=== PATIENT | male | born 1965 | race Caucasian/White ===

== ENCOUNTER 2019-04-25 21:08 | Observation (INO) ==
[2019-04-25 22:05] LABS: BASO# 0.04 X1000 (0.0-0.2); BASO% 0.4 % (0.0-0.8); EOS# 0.29 X1000 (0.0-0.7); EOS% 2.6 % (0.0-10.0); HEMATOCRIT 49.2 % (42.0-52.0); IMM GRAN# 0.04 X1000 (0.0-0.04); IMM GRAN% 0.4 % (0.0-0.5); LYMPH# 2.61 X1000 (1.2-3.4); LYMPH% 23.4 % (20.5-51.1); MCH 28.2 PG (27-31); MCHC 32.5 g/dL (33-37); MCV 86.6 FL (81-99); MONO# 1.34 X1000 (0.11-0.59); MPV 10.9 FL (7.4-10.4); NEUT# 6.84 X1000 (1.4-6.5); NEUT% 61.2 % (42.2-75.2); PLT 243 X1000 (130-400); RBC 5.68 XMIL (4.7-6.1); RDW 12.2 % (11.5-14.5); WBC 11.16 X1000 (4.8-10.8)
[2019-04-25 22:11] LABS: AGAP 12; ALBUMIN 4.5 g/dL (3.5-5.0); ALKALINE PHOSPHATASE 105 U/L (32-122); BUN 15 mg/dL (8-22); CALCIUM 9.4 mg/dL (8.8-10.2); CHLORIDE 102 mmol/L (98-107); COSMO 280; CREATININE 0.9 mg/dL (0.7-1.2); ESTIMATED GFR > 60; GLUCOSE 123 mg/dL (70-104); GOT 17 U/L (10-34); GPT 21 U/L (10-44); POTASSIUM 4.7 mmol/L (3.5-5.1); SODIUM 139 mmol/L (136-145); TCO2 26 mmol/L (25-35); TOTAL PROTEIN 7.4 g/dL (6.3-8.3)
[2019-04-25 22:21] LABS: INR 0.87; PROTIME 12.3 Seconds (11.0-16.0)
[2019-04-25 22:22] LABS: PTT 33.3 Seconds (22.3-41.8)
--- NOTE | 2019-04-25 23:20 | PROVIDER DOCUMENTATION ---
This chart was entered by Rafaela Baldwin Scribe, acting as scribe for Glenys Ramirez CRNP. HPI-Syncope/Dizziness - General Chief Complaint: Numbness Stated Complaint: WORK RELATED , DIZZY Time Seen by Provider: 04/25/19 21:24 Source: RN/MD Allergies/Adverse Reactions: Patient Allergies Allergy/AdvReac Type Severity Reaction Status Date / Time No Known Allergies Allergy Verified 04/25/19 21:23 - History of Present Illness-Syncope/Dizzy Nature of Presenting Problem: pt is a 53 yowm c/o sudden onset tinnitus, dizziness and tingling in rt arm and rt leg while at work. pt reports his leg feels heavier than normal. pt has no pcp and has not seen a DR IN YEARS Prior Episodes: reports: no prior history Onset/Duration: reports: just prior to arrival Timing: reports: still present Position/Activity at time of episode: reports: standing, activity Symptoms prior to episode: reports: lightheaded Context: reports: felt faint Loss of Consciousness: no loss of consciousness Location of injury. (If syncope resulted in an injury.): reports: none Current Symptoms: reports: dizzy. denies: headache, blurred vision Recently Seen Here or By Another Healthcare Provider: No - Dizziness Severity in ED: reports: mild Dizziness Related Current/Associated Symptoms: reports: dizzy, ringing/roaring in ears, other (tingling in RLE, RUE, leg feels heavier than normal) Any recent trauma/injury?: reports: none Modifying Factors: improves with: nothing Patient usually:: reports: walks without assistance Review of Systems - Adult - REVIEW OF SYSTEMS - ADULT Constitutional: reports: no symptoms reported. denies: fever, fatique, night sweats Eyes: reports: no symptoms reported Ears, Nose, Mouth & Throat: reports: see HPI, tinnitus. denies: sinus problem, hoarseness, throat pain Cardiovascular: reports: no symptoms reported Respiratory: reports: no symptoms reported Gastrointestinal: reports: no symptoms reported Genitourinary: reports: no symptoms reported Musculoskeletal: reports: no symptoms reported Integumentary: reports: no symptoms reported Neurological: reports: see HPI, dizziness/vertigo, paresthesia (tingling in rt arm and rt leg, leg feels heavier than normal). denies: loss of balance, syncope, tremors Psychiatric: reports: no symptoms reported Endocrine: reports: no symptoms reported Hematologic/Lymphatic: reports: no symptoms reported Allergic/Immunologic: reports: no symptoms reported All Other Systems: Reviewed and Negative Past History - Adult - PAST MEDICAL HISTORY-ADULT Review of Records: reports: Nursing Assessment Review, Medications Reviewed, Social history reviewed & non-contributory. Major Childhood Illnesses: reports: denies history Cardiovascular: reports: denies history Respiratory: reports: denies history Gastrointestinal: reports: denies history Obstetrical/Gynecological: reports: denies history Genitourinary: reports: denies history Musculoskeletal: reports: denies history Neurological: reports: denies history Endocrine/Immune: reports: denies history Other Conditions: reports: denies history - IMMUNIZATION STATUS Childhood Immunizations: See Nurse Assessment Flu Vaccine: See Nurse Assessment - FAMILY HISTORY Family History: reviewed, not pertinent Physical Exam-General - PHYSICAL EXAM-ADULT Initial Vital Signs Reviewed: Yes - CONSTITUTIONAL General Appearance: appears well, alert, no apparent distress - EYES Eyes: PERRL/EOMI, pink conjunctivae - HEAD, EARS, NOSE, MOUTH & THROAT HENMT: normocephalic/atraumatic, moist mucous membranes, normal ENT inspection - NECK Neck: non-tender, full range of motion, supple, normal inspection - RESPIRATORY Respiratory: chest non-tender, lungs clear, normal breath sounds - CARDIOVASCULAR Cardiovascular: normal peripheral pulses, regular rate, rhythm - GASTROINTESTINAL (ABDOMEN) Abdominal Exam: normal bowel sounds, non tender, soft - MUSCULOSKELETAL Back Exam: normal inspection Extremity: normal range of motion, non-tender, normal inspection - SKIN Integumentary: normal color, normal turgor, warm/dry - NEUROLOGIC Neurologic: planer feeder II-XII nml as tested, grossly normal, no motor/sensory deficits, other (pt has equal strength in bilat UE and LE). negative: focal weakness, motor weakness, sensory deficit - PSYCHIATRIC Psych/Mental Status: normal mood/affect, normal thought content, normal thought process, oriented x 3 Progress - PLAN OF CARE/RESULTS Progress/Plan/Lab Results: Vital Signs - 8 hr 04/25/19 21:19 04/25/19 22:57 Temperature 98.1 F Pulse Rate 88 76 Respiratory Rate 16 10 L Blood Pressure 156/92 149/95 O2 Sat by Pulse Oximetry 94 L 96 Laboratory Results - last 24 hr 01/06/1304/25/19 04/25/19 21:40 21:40 21:40 WBC 11.16 H RBC 5.68 Hgb 16.0 Hct 49.2 MCV 86.6 MCH 28.2 MCHC 32.5 L RDW Std Deviation 12.2 Plt Count 243 MPV 10.9 H Immature Gran % (Auto) 0.4 Neut % (Auto) 61.2 Lymph % (Auto) 23.4 Ness % (Auto) 12.0 H Eos % (Auto) 2.6 Baso % (Auto) 0.4 Immature Gran # (Auto) 0.04 Neut # (Auto) 6.84 H Lymph # (Auto) 2.61 Ness # (Auto) 1.34 H Eos # (Auto) 0.29 Baso # (Auto) 0.04 PT INR PTT (Actin FS) Sodium 139 Potassium 4.7 Chloride 102 Carbon Dioxide 26 Anion Gap 12 BUN 15 Creatinine 0.9 Estimated GFR/1.73 m2 > 60 BUN/Creatinine Ratio 17 Glucose 123 H Calculated Osmolality 280 Calcium 9.4 Total Bilirubin 0.50 AST 17 ALT 21 Alkaline Phosphatase 105 Troponin T < 0.010 Total Protein 7.4 Albumin 4.5 Globulin 3.0 Albumin/Globulin Ratio 2.0 04/25/19 21:40 WBC RBC Hgb Hct MCV MCH MCHC RDW Std Deviation Plt Count MPV Immature Gran % (Auto) Neut % (Auto) Lymph % (Auto) Ness % (Auto) Eos % (Auto) Baso % (Auto) Immature Gran # (Auto) Neut # (Auto) Lymph # (Auto) Ness # (Auto) Eos # (Auto) Baso # (Auto) PT 12.3 INR 0.87 PTT (Actin FS) 33.3 Sodium Potassium Chloride Carbon Dioxide Anion Gap BUN Creatinine Estimated GFR/1.73 m2 BUN/Creatinine Ratio Glucose Calculated Osmolality Calcium Total Bilirubin AST ALT Alkaline Phosphatase Troponin T Total Protein Albumin Globulin Albumin/Globulin Ratio Orders Category Date Time Status Cardiac Monitoring DIRECTED Care 04/25/19 21:25 Active Finger Stick Blood Sugar (ED) DIRECTED Care 04/25/19 21:25 Active Oxygen Therapy- ED Nursing DIRECTED Care 04/25/19 21:25 Active Saline Loc NOW Care 04/25/19 21:[address] HEAD W/O CONTRAST [CT] Stat Exams 04/25/19 21:24 Taken cxr [CHEST-2 VIEWS] [RAD] Stat Exams 04/25/19 22:59 Taken CBC WITH ELECTRONIC DIFF [HEME] Stat Lab 04/25/19 21:40 Completed COMPREHENSIVE METABOLIC PANEL [CHEM] Stat Lab 04/25/19 21:40 Completed PROTIME WITH INR [COAG] Stat Lab 04/25/19 21:40 Completed PTT [COAG] Stat Lab 04/25/19 21:40 Completed TROPONIN T Stat Lab 04/25/19 21:40 Completed URINALYSIS W/POSS RFLX CULT [URINALYSIS] Stat Lab 04/25/19 21:25 Uncollected URINE DRUG SCREEN PL Stat Lab 04/25/19 21:25 Uncollected EKG [EKG] Stat Ther 04/25/19 21:25 Ordered 2255: D/W DR DÍAZ ABOUT POSSIBLE TX TO [place], HE RECOMMENDS ADMISSION HERE AT [facility] FOR WORKUP 2300: OFFERED ADMISSION, PT AND FAMILY DISCUSSING 2325 PT IN AGREEMENT WITH ADMISSION Result Diagrams: 04/25/19 21:40 04/25/19 21:40 - EKG 1 Time of EKG reading by physician:: 21:36 EKG Read and Signed by:: Andrei Díaz EKG Interpretation (*Must complete 3 of following elements*): Normal Rate: 82 Rhythm: NSR [place]: normal QRS: normal MA Interval: normal ST Wave: normal Prior EKG Comparison: no prior EKG - XRAY 1 XRAY Study: Chest Impression: Normal - CT/MRI 1 CT Study: Head Impression: See EMR Report (1 NEGATIVE FOR ACUTE INTRACRANIAL ABNORMALITY 2. SINUSITIS) - CONSULTS/PCP/HOSPITALIST Notification #1 *Consult/PCP/Hospitalist*: DR. ALVARADO Time Discussed: 23:23 Consult Disposition: Admit (CVA WORK UP) Departure - Departure Date of Disposition Decision: 04/25/19 Time of Disposition Decision: 23:24 DIAGNOSIS: CVA (cerebral vascular accident) Disposition: HOME 01 Certified Medical Emergency: Emergent Condition: Stable Referrals and Follow-Ups: None,PCP [Primary Care Provider] - - Critical Care Note This patient required my direct & personal management of CC.: No Attestation - Physician/ KYRA Attestation Patient care was provided by Advanced Practice Provider:: Yes Advanced Practice Provider:: Glenys Ramirez Advanced Practice Provider documentation review:: The Mid-level provider documentation, treatment plan and medical decision making was reviewed by the physician who agrees with all treatment and medical decision making by the MLP. The physician spent face to face time with patient:: No Advanced Practice Provider documentation review:: Supervising physician onsite and consulted in the evaluation and care of this patient. The physician did not have a face to face encounter with the patient. - NIH Stroke Scale NIH Type: Initial Evaluation Level of Consciousness: 0-Alert LOC Questions (ask month and age): 0-Answers Both Correctly LOC Commands (ask to open & close eyes;make a fist, let go): 0-Obeys Both Correctly Best Gaze (horizontal eye movement): 0-Normal Visual (use finger movement, counting or visual threat): 0-No Visual Loss Facial Palsy (show teeth or raise eyebrows & close eyes tght: 0-Symmetrical Movement Motor Function-left arm: 0-Normal Motor Function-right arm: 0-Normal Motor Function-left le-Normal Motor Function-right le-Drift Limb Ataxia(iffbsn-mrgp-uomneq, or heel to mullins): 0-No Ataxia Sensory(pin prick to face,arms,trunk,legs-compare side/side): 0-No Ataxia Best Language(name item/read sentence.Ex-Down to Earth): 0-No Aphasia Dysarthria(Pt read words or say words Ex.Mama,Tip-Top,Thanks: 0-Normal Articulation Extinction and Inattention: 0-Normal NIH Total Score: 1 Stroke tPA Guidelines - Inclusion Criteria for IV tPA 18 years old or older: Yes Ischemic stroke with measurable deficit: Yes Onset <3 hours ago *OR* 3-4.5 hours ago: Yes - Exclusion Criteria for IV tPA Evidence of intracranial hemorrhage on CT: No Presentation suggest SAH: No CT reveals defined area of hypodensity: No Evidence of AVM, neoplasm, aneurysm: No Seizure at stroke onset: No Active internal bleeding or acute trauma: No Platelet Count Less Than 100,000: No Heparin Within Last 48 HRS (PTT >Lab normal limits): No INR > 1.7 (warfarin use): No Use IIB/IIIA inhibitors within 24 hours: No Serious Head Trauma Within Last 3 Months: No Arterial Puncture Within Last 7 Days: No Lumbar Puncture Within Last 7 Days: No Repeated systolic Blood Pressure >185 or Diastolic >110: No - Additional Exclusion Criteria for IV tPA Currently on Coumadin: No Patient older than 80: No Prior stroke and diabetes: No Baseline NIHSS score > 25: No - Relative Contraindications to IV tPA CT reveals extensive area of infarct (>1/3 MCA territory): No Minor or rapidly improving stroke symptoms: Yes Major Surgery or Serious Trauma In Previous 14 Days: No AMI within 3 months: No Gastrointestinal or Urinary Tract hemorrhage in Past 21 Days: No Post - AMI pericarditis: No Blood Glucose Less Than 50 mg/dl or Greater Than 400 mg/dl: No This chart was documented by the indicated scribe, (Rafaela Baldwin Scribe) and accurately reflects the services I performed and decisions made by , Glenys Ramirez CRNP, as attested by the provider's signature.
[2019-04-25 23:42] LABS: URINE SOURCE CLEAN CATCH
[2019-04-25 23:53] LABS: BILIRUBIN URINE NEGATIVE (NEGATIVE); BLOOD URINE NEGATIVE (NEGATIVE); COLOR STRAW; GLUCOSE URINE NEGATIVE (NEGATIVE); KETONE URINE NEGATIVE (NEGATIVE); LEUKOCYTES URINE NEGATIVE (NEGATIVE); NITRITE URINE NEGATIVE (NEGATIVE); PROTEIN URINE NEGATIVE (NEGATIVE); SP GRAVITY URINE 1.009; TURBIDITY URINE CLEAR (CLEAR); UR EPITHELIAL CELLS <10 /HPF (<10); URINE BACTERIA NEGATIVE /HPF; URINE RBC <10 /HPF (<10); URINE WBC <10 /HPF (<10); UROBILINOGEN URINE NORMAL (NORMAL)
--- NOTE | 2019-04-26 00:10 | EKG Report ---
Test Performed on : 04/25/2019 9:36:17 PM Test Reason : CVA W/U Blood Pressure : / mmHG Vent. Rate : 082 BPM Atrial Rate : 082 BPM P-R Int : 146 ms QRS Dur : 088 ms QT Int : 374 ms P-R-T Axes : 043 027 052 degrees QTc Int : 436 ms Normal sinus rhythm. Normal ECG No previous ECGs available Unconfirmed Result
[2019-04-26 00:14] LABS: UR AMPHETAMINES QUAL NONE DETECTED (NONE DETECT); UR BARBITUATES QUAL NONE DETECTED (NONE DETECT); UR BENZODIAZEPIN QUAL NONE DETECTED (NONE DETECT); UR CANNABINOIDS QUAL NONE DETECTED (NONE DETECT); UR COCAINE QUAL NONE DETECTED (NONE DETECT); UR METHADONE QUAL NONE DETECTED (NONE DETECT); UR METHAMPHETAMINE QUAL NONE DETECTED (NONE DETECT); UR OPIATES QUAL NONE DETECTED (NONE DETECT); UR OXYCODONE QUAL NONE DETECTED (NONE DETECT); UR PCP QUAL NONE DETECTED (NONE DETECT); UR PROPOXYPHENE QUAL NONE DETECTED (NONE DETECT); UR TCA QUAL NONE DETECTED (NONE DETECT)
[2019-04-26 01:16] LABS: CHOLESTEROL 217 mg/dL (0-200); HDL 44 mg/dL (35-55); HEMOGLOBIN A1C 5.5 % (4.8-6.0); LDL 132 mg/dL; TRIGLYCERIDES 206 mg/dL (39-160); VLDL 41 mg/dL
--- NOTE | 2019-04-26 08:34 | Diag Imaging Result Doc PS360 ---
EXAM: CHEST-2 VIEWS HISTORY: LOW SATS TECHNIQUE: PA and Lateral chest x-ray COMPARISON: None. FINDINGS: The cardiomediastinal silhouette is within normal limits. The pulmonary vasculature is not congested. No infiltrate, effusion, or pneumothorax is appreciated. IMPRESSION: No acute cardiopulmonary abnormality is identified. Electronically signed by Nella Troncoso 04/26/2019 8:32 AM
--- NOTE | 2019-04-26 08:57 | Diag Imaging Result Doc PS360 ---
EXAM: CT HEAD W/O CONTRAST HISTORY: R SIDE NUMBNESS TECHNIQUE: Images were obtained from the skull base to vertex without IV contrast as per standard protocol. This exam was performed using automated exposure control, adjustment of mA or kV according to patient size, and/or use of iterative reconstruction technique. COMPARISON: None. Extra-axial spaces: Normal. No hematoma is appreciated. Ventricular system /subarachnoid spaces/cisterns: Unremarkable. No hydrocephalus. No hemorrhage is appreciated. Cerebral parenchyma: Focal hypodensity left parasagittal parietal-occipital lobe nonspecific but likely old infarct. No mass effect. No hemorrhage is appreciated. Midline shift: None. Cerebellum/Brain stem: Unremarkable. Calvarium: No fracture is identified. Paranasal sinuses and mastoid air cells: Moderate ethmoid inflammatory sinus disease. Visualized orbits: Normal. Preliminary interpretation was given by [facility]. IMPRESSION: No acute intracranial abnormality is appreciated. Probable chronic left parieto-occipital infarct. Electronically signed by Nella Troncoso 04/26/2019 8:54 AM
[2019-04-26] MEDS ORDERED: ASPIRIN PO SCH (09:00)
--- NOTE | 2019-04-26 10:35 | Diag Imaging Result Doc PS360 ---
EXAM: MRI BRAIN W/WO CONTRAST HISTORY: CVA TECHNIQUE: Routine multiplanar images with and without contrast as per standard protocol. COMPARISON: CT brain 04/25/2019 FINDINGS: EXAM: MRI BRAIN W/WO CONTRAST HISTORY: CVA TECHNIQUE: Multisequence, multiplanar images of the brain were obtained without contrast as per standard protocol. COMPARISON: None. FINDINGS: There are no extra-axial collections. Diffusion images show a 13 mm infarct left thalamus with mild corresponding T2 and FLAIR hyperintensity. There is no evidence for hemorrhage. There is no hydrocephalus. No midline shift or mass effect. Focal encephalomalacia is noted medial left occipital lobe likely from prior infarct. There is no abnormal signal within the brainstem or cerebellum. There are no abnormal regions of contrast enhancement. There is abnormal signal within the ethmoid sinuses. There is complete opacification of the left maxillary sinus. IMPRESSION: 13 mm acute infarct in left thalamus. Focal encephalomalacia left medial occipital lobe likely from prior prior infarction. Inflammatory ethmoid and maxillary sinus disease with complete opacification of left maxillary sinus. Electronically signed by Nella Troncoso 04/26/2019 10:32 AM
--- NOTE | 2019-04-26 11:06 | HISTORY AND PHYSICAL ---
PRIMARY CARE PHYSICIAN: None. CHIEF COMPLAINT: Ringing in his ears, dizziness, tingling in his right arm and right leg while at work that progressively worsened. HISTORY OF PRESENTING ILLNESS: This is a 53-year-old male who presented to [facility] ER after he was at work and began feeling ringing in his ears and stopped working for a moment, began feeling dizzy, started having tingling in his right arm and right leg. States his co-worker was asking him questions, and he was unable to answer those questions, so they called EMS, and he was brought to the emergency room. He was able to walk to the ambulance and into the emergency room. When he sat down in the wheelchair in triage, he again felt dizzy, worsening tingling in his right arm and leg that has continued and did not subside. The dizziness and ringing in his ears has improved. CT of the head last night showed no acute intracranial abnormality, but there is a probable chronic left parieto-occipital infarct, so he is being admitted for further evaluation and treatment. PAST MEDICAL HISTORY: None. PAST SURGICAL HISTORY: Hernia repair. FAMILY HISTORY: His father had a CVA and an DE. SOCIAL HISTORY: Currently lives with family. Denies any tobacco, alcohol or illicit drug use. ALLERGIES: He has no known drug allergies. HOME MEDICATIONS: He does not take any medications on a routine basis. LABORATORY DATA: Showed a white blood cell count of 11.16, hemoglobin 16, hematocrit 49.2, platelets 243. PT and INR of 12.3 and 0.87. Sodium 139, potassium 4.7, chloride 102, CO2 26, BUN of 15, creatinine 0.9, glucose 123. Hemoglobin A1c of 5.5. Triglycerides were 206, cholesterol 217. Urinalysis was negative. Urine drug screen showed none detected. CT of the head showed no acute intracranial abnormality appreciated, but a probable chronic left parieto-occipital infarct. Chest x-ray showed no acute cardiopulmonary abnormality identified. EKG showed normal sinus rhythm at 82. REVIEW OF SYSTEMS: He was positive for some dizziness and ringing in his ears, tingling to his right arm and right leg. Denied any chest pain, coughing, shortness of breath, abdominal pain, constipation, diarrhea, burning or hurting with urination. PHYSICAL EXAMINATION: VITAL SIGNS: On arrival, he had a temperature of 98.1 degrees, a pulse of 88, respirations 16, blood pressure 156/92 and was saturating 94% on room air. GENERAL: This is a 53-year-old male who is lying in the bed and answers questions appropriately. HEENT: Normocephalic, atraumatic. Normal ENT inspection. Oropharynx and nares are clear. EYES: Pupils are equal, round, reactive to light and accommodation. Extraocular movements are intact. NECK: Normal inspection. Normal range of motion. LUNGS: Clear to auscultation bilaterally with equal lung expansion and chest wall movement. HEART: Regular rate and rhythm. No murmurs, rubs, or gallops. ABDOMEN: Soft, nontender, nondistended. Bowel sounds are present x4 quadrants. MUSCULOSKELETAL: He had 5/5 strength x4 extremities. NEUROLOGICAL: The cranial nerves 2-12 are grossly intact. ASSESSMENT: 1. Transient ischemic attack versus cerebrovascular accident. 2. Hyperlipidemia. 3. An elevated blood pressure without a diagnosis of hypertension. PLAN: He was admitted to the medical unit, placed on telemetry, healthy heart diet. We are going to obtain an MRI of the brain today. We will do an echocardiogram, bilateral carotid ultrasound. We will place him on Lipitor 40 mg p.o. daily, aspirin 325 mg p.o. daily. We are going to allow for some permissive hypertension at this time. We will give him normal saline at 100 mL an hour to aid with that. We are going to get a CT angiogram of the head. We will do neuro checks q.4h x24 hours. Further orders after seen by attending. Dictated by GEENA Gandara for Ryan Dill MD cc: GEENA Gandara MD
[2019-04-26] MEDS: LIPITOR PO SCH (11:25)
[2019-04-26] MEDS: NS 1,000 ML IV SCH (11:30)
[2019-04-26] MEDS: PLAVIX PO SCH (11:34)
--- NOTE | 2019-04-26 11:44 | Vascular Study Report ---
EXAM: Carotid Ultrasound HISTORY: CVA TECHNIQUE: Grayscale, duplex, and color Doppler evaluation was performed of the carotid arteries bilaterally. Standard protocol. COMPARISON: None. FINDINGS: There is no significant atherosclerotic plaque. There are no velocity elevations to suggest hemodynamically significant carotid artery stenosis. ICA/CCA ratios are within normal limits. Bilateral vertebral arterial flow is antegrade. There is an incidental right thyroid nodule measuring 1.3 cm. Recommend dedicated thyroid ultrasound. IMPRESSION: No evidence for hemodynamically significant carotid artery stenosis. Estimated stenosis is less than 50% bilaterally. Right thyroid nodule. Recommend dedicated thyroid ultrasound. She Electronically signed by Nella Troncoso 04/26/2019 11:42 AM
[2019-04-26] MEDS ORDERED: TYLENOL PO PRN (11:50)
[2019-04-26] MEDS ORDERED: ZOFRAN IV PRN (11:50)
--- NOTE | 2019-04-26 12:40 | Diag Imaging Result Doc PS360 ---
EXAM: CT ANGIOGRAM HEAD HISTORY: cva TECHNIQUE: This exam was performed using automated exposure control, adjustment of mA or kV according to patient size, and/or use of iterative reconstruction technique. Postprocessing including 3-D rotating MIPs COMPARISON: None. FINDINGS: Vertebral arteries, basilar artery, distal carotid arteries, anterior cerebral, middle cerebral, and posterior cerebral arteries are patent. The left P1 segment of the left REFRIGERATION SYSTEM INSTALLER is small and caliber. No aneurysm is appreciated. No vascular occlusion or cut off. Paranasal sinus disease again demonstrated. IMPRESSION: Small caliber P1 segment of the left REFRIGERATION SYSTEM INSTALLER. Otherwise unremarkable brain MRA. Electronically signed by Nella Troncoso 04/26/2019 12:38 PM
--- NOTE | 2019-04-26 12:45 | HISTORY AND PHYSICAL ---
SUBJECTIVE: The patient came in with right-sided weakness and numbness, which occurred at work. He was placed in observation for possible TIA versus stroke. OBJECTIVE: This morning, when I am examining him, he still has a right pronator drift. I mean, he clearly has a dropping arm, and he is still weak in his right upper and to some degree lower extremity. MRI confirms he has had a thalamic infarct. He has had previously an old occipital infarct, but he has had about a 1.3 cm infarct, so we will initiate anti-platelet therapy, statin, permissive hypertension. ASSESSMENT AND PLAN: We discussed the case with Dr. Thrasher who recommended actually doing aspirin and Plavix for 3 months and then close followup with him. CT angiogram and echocardiogram are pending. This is a [id number] encounter note GEENA Gandara. We spent over 30 minutes working with his patient and consulting Neurology. cc: Ryan Dill MD
--- NOTE | 2019-04-26 20:32 | ECHO REPORT ---
ORDER DATE: 04/26/2019 INTERPRETING PHYSICIAN: Stevo Holder MD ECHOCARDIOGRAPHIC MEASUREMENTS: 1. Interventricular septum 0.9. 2. Left ventricular posterior wall 1.0, diastolic diameter 3.3. 3. Left atrium 2.5. 4. Aorta 3.2. SUMMARY OF TWO-DIMENSIONAL IMAGIN. The pulmonic valve was normal. 2. There is trace pulmonary regurgitation. 3. Mitral valve was normal. 4. Tricuspid valve was normal. 5. There is mild mitral regurgitation. 6. Mild tricuspid regurgitation. Doppler studies reveal: 1. Peak velocity across the tricuspid valve less than 2 m/sec. 2. Peak velocity across the aortic valve less than 2 m/sec. 3. There is no aortic stenosis or regurgitation. 4. Normal left ventricular cavity size. 5. Estimated ejection fraction of 65%. 6. There is grade 1 diastolic dysfunction. 7. There is no pericardial effusion. cc: Stevo Holder MD
[2019-04-27] MEDS: NS 1,000 ML IV SCH ×2 (02:40→08:49)
[2019-04-27] MEDS: LOVENOX SUBQ SCH (06:13)
[2019-04-27] MEDS: LIPITOR PO SCH (08:49)
[2019-04-27] MEDS: PLAVIX PO SCH (08:49)
[2019-04-27] MEDS: ASPIRIN EC PO SCH (08:49)
--- NOTE | 2019-04-27 15:29 | DISCHARGE SUMMARY ---
ADMISSION DATE: 04/25/2019 DISCHARGE DATE: SUBJECTIVE: The patient has no main complaints. He still has some weakness in his right arm, which is his dominant side, and he still has some gait disturbance. OBJECTIVE: Blood pressure is 150/97, heart rate 75, respiratory rate 18, temperature 98.1 degrees, 97% on room air. Cardiovascular: Regular rate and rhythm. Pulmonary: Bilateral breath sounds clear to auscultation. GI: Soft, nontender, nondistended. Bowel sounds are positive. LABORATORY DATA: I do not have any new data today. CTA was negative. 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 Carotid was negative. Echo did not show intracardiac thrombus. EF was 65%. He did have some diastolic dysfunction. PROBLEM LIST: 1. Acute left thalamic ischemic infarct, CVA with a persistent deficit. We will continue treatment. He still has weakness in his right arm and right leg, so I do think he needs a PT and OT evaluation before discharge and we will plan for outpatient PT OT based on their recommendations. 2. Hypertension. We will allow permissive hypertension for the time being, but we will allow him to resume, probably institute some lisinopril at discharge. DISPOSITION: Anticipate discharge either later today or in the morning. cc: Ryan Dill MD
[2019-04-28] MEDS: NS 1,000 ML IV SCH ×2 (00:15→10:17)
[2019-04-28] MEDS: LOVENOX SUBQ SCH (06:26)
[2019-04-28 07:49] VITALS: BP 141/90
[2019-04-28] MEDS: PLAVIX PO SCH (09:06)
[2019-04-28] MEDS: LIPITOR PO SCH (09:06)
[2019-04-28] MEDS: ASPIRIN EC PO SCH (09:07)
--- NOTE | 2019-04-28 16:21 | DISCHARGE SUMMARY ---
ADMISSION DATE: 04/25/2019 DISCHARGE DATE: 04/28/2019 ADMITTING DIAGNOSES: 1. 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 2. Hypertension. DISCHARGE DIAGNOSES: 1. 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 2. Hypertension. CONSULTATIONS: None, although we did a phone consult with Dr. Thrasher. HOSPITAL COURSE: Briefly, 53-year-old male who presented from work with right-sided weakness. He was found to have a stroke in his left thalamus. 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 He was initiated on aspirin, Plavix, Lipitor. We allowed for permissive hypertension. He was evaluated by PT, felt that to be improving. He ambulated fairly well. His lab workup was really unremarkable. Carotid did not show any significant obstruction less than 50. His head CTA showed a narrow P1 segment of his left [employer] but otherwise negative. His echo showed an EF of 65%. No major valvular abnormalities, grade 1 diastolic dysfunction. He was felt stable for discharge on the . He will follow up with PT, OT, and Dr. Thrasher as an outpatient and be set up with a doctor from that standpoint. DISCHARGE CONDITION: Stable. DISCHARGE MEDICATIONS: As follows: Aspirin 81 daily, Lipitor 40 daily, Plavix 75 daily, lisinopril 10 daily. DISCHARGE CONDITION: 32 minutes. cc: MD Jerry Aponte III, MD
== END 2019-04-28 16:05 | disposition home or self-care (01) | DRG 65 ==
LOC: P.ED 21:08 → INTOOBSV 21:09 → P.MEDSURG 04-26 02:39
PROVIDERS: ATTEND Internal Medicine